=== PATIENT | male | born 1995 | race Caucasian/White ===

== ENCOUNTER 2019-05-30 09:36 | Emergency (ER) | payer OTHER ==
[~2019-05-30] VITALS: Ht 188 cm; Wt 101.0 kg
[2019-05-30] MEDS ORDERED: ADVI100T PO (09:42)
[2019-05-30] MEDS ORDERED: ACETAMINOPHEN 500 MG TAB PO ONE (10:15)
[2019-05-30 10:29] LABS: INFLUENZA A AMPLIFICATION NEGATIVE (NEGATIVE); INFLUENZA B AMPLIFICATION NEGATIVE (NEGATIVE)
[2019-05-30 11:13] LABS: BASO # 0.1 10^3/uL (0.0-0.2); BASO % 0.4 % (0.0-1.0); EOS # 0.3 10^3/uL (0.0-0.5); EOS % 1.6 % (0.0-3.0); HEMATOCRIT 42.8 % (42.0-52.0); HEMOGLOBIN 14.5 g/dl (13.5-17.5); LYMPH # 0.8 10^3/uL (1.5-5.0); LYMPH % 4.7 % (24.0-44.0); MEAN CORPUSCULAR HEMOGLOBIN 30.5 pg (27.0-33.0); MEAN CORPUSCULAR HGB CONC 33.9 g/dl (32.0-36.5); MEAN CORPUSCULAR VOLUME 90.1 fl (80.0-96.0); MONO # 0.7 10^3/uL (0.0-0.8); MONO % 4.1 % (0.0-5.0); NEUTROPHILS # 14.1 10^3/uL (1.5-8.5); NEUTROPHILS % 88.8 % (36.0-66.0); PLATELET COUNT, AUTOMATED 231 10^3/uL (150-450); RED BLOOD COUNT 4.75 10^6/uL (4.30-6.10); WHITE BLOOD COUNT 15.9 10^3/uL (4.0-10.0)
--- NOTE | 2019-05-30 11:14 | REP ---
PA and lateral chest: There are no comparisons. The lung ramirez are clear. The cardiac size is normal. The christina, mediastinum, and skeletal structures are unremarkable. Impression: Negative PA and lateral chest. Electronically Signed by Avi Corrales MD 05/30/2019 11:07 A
[2019-05-30 11:34] LABS: BLOOD UREA NITROGEN 9 MG/DL (7-18); CALCIUM LEVEL 9.4 MG/DL (8.5-10.1); CARBON DIOXIDE LEVEL 25 MEQ/L (21-32); CHLORIDE LEVEL 106 MEQ/L (98-107); CREATININE FOR GFR 0.96 MG/DL (0.70-1.30); GLOMERULAR FILTRATION RATE > 60.0 (>60); GLUCOSE, FASTING 103 MG/DL (70-100); POTASSIUM SERUM 3.8 MEQ/L (3.5-5.1); SODIUM LEVEL 139 MEQ/L (136-145)
[2019-05-30 13:36] LABS: MONO REFLEX EBV COMP NEGATIVE (NEGATIVE)
--- NOTE | 2019-05-30 13:42 | REP ---
CT of the chest without IV contrast: Comparison is the PA and lateral plain film study earlier today. There are no infiltrates or pleural effusions. There are no lung masses or nodules. Lung ramirez are clear. There is no mediastinal or axillary lymph node enlargement. In the absence of IV contrast the study is insensitive for hilar lymph node enlargement. The unenhanced thoracic aorta is unremarkable. The cardiac size is normal. There is no pericardial effusion. The visualized unenhanced upper abdominal contents are unremarkable. Impression: There are no infiltrates, pleural effusions, masses, nodules or adenopathy. Negative CT study of the chest without IV contrast. Electronically Signed by Avi Corrales MD 05/30/2019 01:34 P
[2019-05-30] MEDS ORDERED: IBUPROFEN 800 MG TAB PO ONE (16:15)
[2019-05-30 17:37] VITALS: BP 124/67
[2019-06-01 00:12] LABS: EBV VIRAL CAPSID AG IgG <18.0 U/mL (0.0-17.9); EBV VIRAL CAPSID AG IgM <36.0 U/mL (0.0-35.9)
== END 2019-05-30 19:36 | disposition home or self-care (01) ==
LOC: M ED 09:36
DX: J06.9 Acute upper respiratory infection, unspecified (principal); B34.9 Viral infection, unspecified; D72.829 Elevated white blood cell count, unspecified
CPT/HCPCS: 36415; 71046; 71250; 80048; 81001; 85025; 86308; 86664; 86665; 87040; 87486; 87502; 87581; 87633; 87798; 87880; 99284; U0002

== ENCOUNTER 2019-07-29 10:40 | Inpatient (IN) | payer OTHER ==
[~2019-07-29] VITALS: Ht 188 cm; Wt 105.4 kg
[~2019-07-29 10:40] MED LIST: ADVI100T PO
[2019-07-29 11:39] LABS: HEMATOCRIT 45.3 % (42.0-52.0); HEMOGLOBIN 15.3 g/dl (13.5-17.5); MEAN CORPUSCULAR HEMOGLOBIN 30.2 pg (27.0-33.0); MEAN CORPUSCULAR HGB CONC 33.8 g/dl (32.0-36.5); MEAN CORPUSCULAR VOLUME 89.5 fl (80.0-96.0); PLATELET COUNT, AUTOMATED 273 10^3/uL (150-450); RED BLOOD COUNT 5.06 10^6/uL (4.30-6.10); WHITE BLOOD COUNT 7.2 10^3/uL (4.0-10.0)
[2019-07-29 12:05] LABS: ALBUMIN 4.5 GM/DL (3.2-5.2); ALT/SGPT 38 U/L (12-78); BILIRUBIN,DIRECT 0.1 MG/DL (0.0-0.2); BILIRUBIN,TOTAL 0.5 MG/DL (0.2-1.0); BLOOD UREA NITROGEN 7 MG/DL (7-18); CALCIUM LEVEL 8.9 MG/DL (8.5-10.1); CARBON DIOXIDE LEVEL 25 MEQ/L (21-32); CHLORIDE LEVEL 107 MEQ/L (98-107); CREATININE FOR GFR 0.85 MG/DL (0.70-1.30); GLOMERULAR FILTRATION RATE > 60.0 (>60); GLUCOSE, FASTING 95 MG/DL (70-100); POTASSIUM SERUM 3.9 MEQ/L (3.5-5.1); SALICYLATE LEVEL < 1.7 MG/DL (5.0-30.0); SODIUM LEVEL 138 MEQ/L (136-145); TOTAL PROTEIN 7.5 GM/DL (6.4-8.2)
[2019-07-29 12:06] LABS: ACETAMINOPHEN LEVEL < 2.0 UG/ML (10.0-30.0); ETHYL ALCOHOL (ETHANOL) < 0.003 % (0.000-0.010)
[2019-07-29 12:09] LABS: AMPHETAMINES LEVEL URINE NEGATIVE (NEGATIVE); BARBITURATES URINE NEGATIVE (NEGATIVE); BENZODIAZEPINES URINE NEGATIVE (NEGATIVE); CANNABINOIDS URINE NEGATIVE (NEGATIVE); COCAINE METABOLITE URINE NEGATIVE (NEGATIVE); METHADONE URINE NEGATIVE (NEGATIVE); OPIATES URINE NEGATIVE (NEGATIVE); PHENCYCLIDINE URINE NEGATIVE (NEGATIVE)
[2019-07-29] MEDS ORDERED: traZODone 50 MG TAB PO PRN (14:45)
[2019-07-29] MEDS ORDERED: ACETAMINOPHEN TAB 650MG DOSE (2X325MG) PO PRN (14:45)
[2019-07-29] MEDS ORDERED: MAALOX 30 ML SUSP *UDC PO PRN (14:45)
[2019-07-29] MEDS ORDERED: diphenhydrAMINE 25MG CAP PO PRN (14:45)
[2019-07-29] MEDS ORDERED: MOM 30ML SUSPENSION UDC PO PRN (14:45)
[2019-07-29 16:14] VITALS: BP 110/63
[2019-07-29] MEDS ORDERED: NICOTINE 21MG/24HR 1 EA TRANSDERMAL TD ONE (17:15)
[2019-07-30 06:28] VITALS: BP 112/66
[2019-07-30] MEDS: NICOTINE 21MG/24HR 1 EA TRANSDERMAL TD SCH (08:53)
--- NOTE | 2019-07-30 09:24 | MHHPEPDOC ---
[facility] History & Physical History and Physical DATE OF ADMISSION: July 29, 2019 at 14:34 New Patient Henry Hernandez MRN: N/A Date of : N/A Date of Service: 07/30/2019 Chief Complaint "I got suicidal." History of Present Illness The patient, a 24-year-old man with a history of mild depression presents after increasing loss of interest, concentration problems and reported fatigue. 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 He reports that he came in for help as he had had some difficulties reaching out and had become increasingly bored by interactions with this where she had recommended he seek help immediately. Review Of Systems Depression: As above. Anxiety: Situational. Shabana: The patient denies any episodes of euphoria/dysphoria associated with decreased need for sleep, hedonism, talkatively or impulsivity lasting longer than 5 days. Psychotic: The patient denies any experiences of auditory or visual hallucinations. They deny any episodes of paranoia or delusional thinking in the past Trauma: The patient denies any traumatic events associated with nightmares or intrusive thoughts. Borderline: Not screened. Past Psychiatric History No history of inpatient admissions, suicide attempts or medication trials. Reports a history of depression treated at [facility] episodically. Allergies Please see below. Family Psychiatric History The patient denies/is unaware any history of mental health history including addictions and suicide. Social History The patient grew up outside the local area. 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 Denies any history of trauma or abuse. Substance Abuse History The patient denies any excessive alcohol use, tobacco or illicit drug use, denies history of substance use treatment. Medical History Patient has no significant past medical history. Mental Status Examination General: Well dressed with good hygiene Speech: Spontaneous and fluid Thought processes: Linear and logical MSK: Smooth and coordinated gait, no signs of tremors or involuntary orofacial movements Thought content: Mild hopelessness. Abstract reasoning, and computation: Intact Description of associations: Intact Description of abnormal or psychotic thoughts: Denies any suicidal or homicidal ideation. Denies any auditory or visual hallucinations. Does not appear to be responding to internal stimuli. Does not appear to be endorsing any bizarre or paranoid ideation. Judgment: Fair. Insight: Mildly limited. Orientation: Alert and orientated 3 Cognition: Grossly normal Recent and remote memory: Intact Attention span and concentration: Intact Fund of knowledge: Adequate Mood: "okay" Affect: Mildly flat. Diagnoses Unspecified depressive disorder. Adjustment versus MDD. Assessment and Plan Unspecified depressive disorder: Start Wellbutrin 150 mg daily Extended-Release. The risks, benefits as well as common side effects as well as alternative treatments (including non-treatment) were discussed with the patient both in [facility] and for their particular case. The patient selected this option out of a range. Disposition Patient will be retained on a voluntary for further treatment at his behest. Problem List 1. Risk for suicide. 2. Ineffective coping. Initial Treatment Plan 1. Patient was admitted on a 11.30 legal status. 2. Complete history was obtained. 3. With patients permission, family will be contacted and database will be expanded. 4. Patients medication regimen will be reviewed and changed accordingly. 5. Patient will be provided with protected environment. 6. Patient will be treated with individual, group, and milieu therapies. 7. Patient will receive supportive psych-education. 8. Discharge planning will commence immediately. 9. Outpatient follow-up treatment will be strongly recommended. 10. The initial treatment plan will focus initially on: Estimated Length Of Stay 3 days. Time Spent 70 minutes with greater than 50% of time spent on counseling/coordination of care. Monday Vital Signs Vital Signs Date Time Temp Pulse Resp B/P (MAP) Pulse Ox O2 Delivery O2 Flow Rate FiO2 07/30/19 06:28 98.0 62 12 112/66 (81) Room Air 07/29/19 15:48 99 Laboratory Data 24H Labs Laboratory Tests 2 07/29/19 11:22: Nucleated Red Blood Cells % (auto) 0.0, Anion Gap 6L, Glomerular Filtration Rate > 60.0, Calcium Level 8.9, Total Bilirubin 0.5, Direct Bilirubin 0.1, Aspartate Amino Transf (AST/SGOT) 29, Alanine Aminotransferase (ALT/SGPT) 38, Alkaline Phosphatase 60, Total Protein 7.5, Albumin 4.5, Albumin/Globulin Ratio 1.50, Thyroid Stimulating Hormone (TSH) 2.390, Salicylates Level < 1.7L, Urine Opiates Screen NEGATIVE, Urine Methadone Screen NEGATIVE, Acetaminophen Level < 2.0L, Urine Barbiturates Screen NEGATIVE, Urine Phencyclidine Screen NEGATIVE, Urine Amphetamines Screen NEGATIVE, Urine Benzodiazepines Screen NEGATIVE, Urine Cocaine Metabolite Screen NEGATIVE, Urine Cannabinoids Screen NEGATIVE, Ethyl Alcohol Level < 0.003 CBC/BMP Laboratory Tests 07/29/19 11:22 Medications No Active Prescriptions or Reported Meds Allergies Coded Allergies: No Known Allergies (Verified Allergy, Unknown, 05/30/19) JERRI JIMENEZ DO July 30, 2019 09:24
--- NOTE | 2019-07-30 10:44 | HPEPDOC ---
General Date of Admission July 29, 2019 at 14:34 Date of Service: July 30, 2019 Chief Complaint The patient is a 24-year-old male admitted with a reason for visit of Depressive Disorder. Source: Patient Exam Limitations: Other Timing/Duration: Other (, not applicable) Severity: Other (applicable) Associated Symptoms: Other (not applicable) History of Present Illness 24 years old male from a [facility] was admitted with chief complaints of suicidal ideation since last 2 months. Patient denies any medical symptoms complaint of history Home Medications No Active Prescriptions or Reported Meds Allergies Coded Allergies: No Known Allergies (Verified Allergy, Unknown, 05/30/19) Past Medical History Medical History None Surgical History None Family History Family history reviewed. No history of diabetes, cancer or psych problems Social History * Smoker: Denies Alcohol: Denies Drugs: denies A-FIB/CHADSVASC A-FIB History Current/History of A-Fib/PAF?: No Review of Systems Constitutional: Denies: Chills, Fever, Malaise, Night Sweats, Weakness, Fatigue, Weight Loss, Lethargy, Other Eyes: Denies: Pain, Vision change, Conjunctivae inflammation, Eyelid inflammation, Redness, Other ENT: Denies: Head Aches, Ear Pain, Dysphagia, Sinus Congestion, Post Nasal Drip, Sore Throat, Epistaxis, Other Symptoms Skin: Denies: Rash, Lesions, Jaundice, Bruising, Itching, Dry, Breakdown, Nail Changes, Other Pulmonary: Denies: Dyspnea, Cough, Pleuritic Chest Pain, Other Symptoms Cardiovascular: Denies: Chest Pain, Palpitations, Orthopnea, Paroxysmal Noc. Dyspnea, Edema, Lt Headedness, Other Symptoms Gastrointestinal: Denies: Nausea, Vomiting, Abdominal Pain, Diarrhea, Constipation, Melena, Hematochezia, Other Symptoms Genitourinary: Denies: Dysuria, Frequency, Incontinence, Hematuria, Retention, Other Symptoms Hematologic: Denies: Bruising, Bleeding Excessively, Petecchia, Purpura, Enlarged Lymph Nodes, Other Hematologic Endocrine: Denies: Polydipsia, Polyphagia, Polyuria, Heat Intolerance, Cold Intolerance, Other Endocrine Sx Musculoskeletal: Denies: Neck Pain, Back Pain, Shoulder Pain, Arm Pain, Hand Pain, Leg Pain, Foot Pain, Joint Pain, Muscle Pain, Spasms, Other Symptoms Neurological: Denies: Weakness, Numbness, Change in speech, Confusion Psych: Reports: Mood Normal; Denies: Depression, Memory Issues Physical Examination General Exam: Positive: Alert, Cooperative Eye Exam: Positive: PERRLA, Conjunctiva & lids normal ENT Exam: Positive: Atraumatic Neck Exam: Positive: Supple Chest Exam: Positive: Clear to auscultation, Normal air movement Heart Exam: Positive: Rate Normal, Normal S1, Normal S2 Abdomen Exam: Positive: Normal bowel sounds, Soft Extremity Exam: Positive: Normal pulses Skin Exam: Positive: Nl turgor and temperature Neuro Exam: Positive: Strength at 5/5 X4 ext, Sensation Intact, Cranial Nerves 3-12 NL Psych Exam: Positive: Other (. Suicidal ideations) Vital Signs Vital Signs Date Time Temp Pulse Resp B/P (MAP) Pulse Ox O2 Delivery O2 Flow Rate FiO2 07/30/19 06:28 98.0 62 12 112/66 (81) Room Air 07/29/19 15:48 99 Laboratory Data Labs 24H Laboratory Tests 2 07/29/19 11:22: Nucleated Red Blood Cells % (auto) 0.0, Anion Gap 6L, Glomerular Filtration Rate > 60.0, Calcium Level 8.9, Total Bilirubin 0.5, Direct Bilirubin 0.1, Aspartate Amino Transf (AST/SGOT) 29, Alanine Aminotransferase (ALT/SGPT) 38, Alkaline Phosphatase 60, Total Protein 7.5, Albumin 4.5, Albumin/Globulin Ratio 1.50, Thyroid Stimulating Hormone (TSH) 2.390, Salicylates Level < 1.7L, Urine Opiates Screen NEGATIVE, Urine Methadone Screen NEGATIVE, Acetaminophen Level < 2.0L, Urine Barbiturates Screen NEGATIVE, Urine Phencyclidine Screen NEGATIVE, Urine Amphetamines Screen NEGATIVE, Urine Benzodiazepines Screen NEGATIVE, Urine Cocaine Metabolite Screen NEGATIVE, Urine Cannabinoids Screen NEGATIVE, Ethyl Alcohol Level < 0.003 CBC/BMP Laboratory Tests 07/29/19 11:22 Problems (1) Suicidal ideations Status: Acute Problem Text: Patient admitted to inpatient mental health unit for further care by psych Individual group counseling, as per psychiatry Pharmaceutical intervention as per psych No further medical workup indicated. Please call us back as needed (2) Depressive disorder, not elsewhere classified Status: Chronic Problem Text: As per psychiatry Plan / VTE VTE Prophylaxis Ordered?: No VTE Exclusion Mechanical Proph: Low Risk for VTE VTE Exclusion Pharmacological: At Low Risk for VTE MARY ROJAS MD July 30, 2019 10:44
[2019-07-30] MEDS ORDERED: buPROPion **XL** TABLET 150MG (WELLBUTRIN XL) PO ONE (11:00)
[2019-07-30 16:06] VITALS: BP 122/58
[2019-07-31 06:33] VITALS: BP 102/54
[2019-07-31] MEDS: buPROPion **XL** TABLET 150MG (WELLBUTRIN XL) PO SCH (08:08)
[2019-07-31] MEDS: NICOTINE 21MG/24HR 1 EA TRANSDERMAL TD SCH (08:08)
--- NOTE | 2019-07-31 10:00 | MHIPNPDOC ---
[facility] Progress Note Progress Note Inpatient Progress Note Henry Hernandez MRN: N/A Date of : N/A Date of Service: 07/31/2019 History of Present Illness The patient, a 24-year-old man with a history of mild depression presents after increasing loss of interest, concentration problems and reported fatigue. 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 He reports that he came in for help as he had had some difficulties reaching out and had become increasingly bored by interactions with this where she had recommended he seek help immediately. Interval History The patient's net with today. He reports he is doing much better and is improving well on his Wellbutrin. He reports that he has done well in groups and other treatment. His fatigue, loss of interest and concentration have been resolving while and he feels much improved. He has had no behavioral problems and has been engaging well with treatment. Review Of Systems General: Denies fever or appetite changes Cardiovascular: Denies Chest pain or palpations GI: Denies Nausea, vomiting, or bowel changes Respiratory: Denies shortness of breath or cough Neuro: Denies dizziness, tremors Derm: Denies any rashes or pruritus : Denies any dysuria or urinary problems MSK: Denies any muscle tightness or stiffness HEENT: Denies any vision changes or headaches Psychotherapy None on this visit. Vital Signs Reviewed. Mental Status Examination General: Well dressed with good hygiene Speech: Spontaneous and fluid Thought processes: Linear and logical MSK: Smooth and coordinated gait, no signs of tremors or involuntary orofacial movements Thought content: Future orientated Abstract reasoning, and computation: Intact Description of associations: Intact Description of abnormal or psychotic thoughts: Denies any suicidal or homicidal ideation. Denies any auditory or visual hallucinations. Does not appear to be responding to internal stimuli. Does not appear to be endorsing any bizarre or paranoid ideation. Judgment: fair Insight: fair Orientation: Alert and orientated 3 Cognition: Grossly normal Recent and remote memory: Intact Attention span and concentration: Intact Fund of knowledge: Adequate Mood: "okay" Affect: Euthymic with a full range Diagnoses Unspecified depressive disorder. Adjustment versus MDD. Assessment and Plan Unspecified depressive disorder: Continue Wellbutrin 150 mg daily. Disposition Discharge tomorrow if continues to improve. Time Spent 15 minutes. Monday Vital Signs Vital Signs Date Time Temp Pulse Resp B/P (MAP) Pulse Ox O2 Delivery O2 Flow Rate FiO2 07/31/19 06:33 97.8 80 12 102/54 (70) 07/30/19 06:28 Room Air 07/29/19 15:48 99 Current Medications Current Medications Medications (Trade) Dose Ordered Sig/Walter Route PRN Reason Start Time Stop Time Status Last Admin Dose Admin Acetaminophen (Tylenol Tab) 650 mg Q6HP PRN PO HEADACHE or DISCOMFORT 07/29/19 14:45 Al Hydrox/Mg Hydrox/Simethicone (Mylanta) 30 ml Q4HP PRN PO HEARTBURN/INDIGESTION 07/29/19 14:45 Bupropion HCl (Wellbutrin Xl) 150 mg DAILY PO 07/31/19 09:00 07/31/19 08:08 Diphenhydramine HCl (Benadryl) 25 mg Q6HP PRN PO ANXIETY/AGITATION 07/29/19 14:45 Home Med (Med Rec Complete!) ASDIRECTED XX 07/29/19 14:30 07/29/19 14:19 DC Magnesium Hydroxide (Milk Of Magnesia) 30 ml DAILYPRN PRN PO CONSTIPATION 07/29/19 14:45 Nicotine (Nicoderm Cq 21mg) 1 patch DAILY TD 07/30/19 09:00 07/31/19 08:08 Trazodone HCl (Desyrel) 50 mg QHSP PRN PO INSOMNIA 07/29/19 14:45 Allergies Coded Allergies: No Known Allergies (Verified Allergy, Unknown, 05/30/19) JERRI JIMENEZ DO July 31, 2019 10:00
[2019-07-31] MEDS ORDERED: NICO21PAT TD (11:01)
[2019-07-31] MEDS ORDERED: BUPR150T3 PO (11:01)
[2019-07-31 16:05] VITALS: BP 127/67
[2019-08-01 06:39] VITALS: BP 118/77
[2019-08-01] MEDS: buPROPion **XL** TABLET 150MG (WELLBUTRIN XL) PO SCH (08:05)
[2019-08-01] MEDS: NICOTINE 21MG/24HR 1 EA TRANSDERMAL TD SCH (08:06)
--- NOTE | 2019-08-01 09:56 | MHDSPDOC ---
[facility] Discharge Summary Discharge Summary DATE OF ADMISSION: July 29, 2019 at 14:34 DATE OF DISCHARGE: 08/01/2019 Discharge Henry Hernandez MRN: N/A Date of : N/A Date of Service: 08/01/2019 Diagnoses Unspecified depressive disorder. Adjustment versus MDD. History of Present Illness The patient, a 24-year-old man with a history of mild depression presents after increasing loss of interest, concentration problems and reported fatigue. 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 He reports that he came in for help as he had had some difficulties reaching out and had become increasingly bored by interactions with this where she had recommended he seek help immediately. Consultants Involved Hospitalist/PCP screening Treatment and Progress On The Unit The patient was admitted to the inpatient mental health unit. He did not have any suicidal thoughts when he first arrived reporting primarily that he had hopelessness and depression. He was started on Wellbutrin 150 mg daily and tolerated well with improvement in his symptoms. His depression, low mood and other problems resolved without much effort. He engaged well, had no behavioral problems and generally did not require many PRNs. Discharge Assessment 24-year-old man with a history of depression presents for treatment, he is treated with Wellbutrin with positive results. The patient at the time of discharge did not meet criteria for involuntary admission/extension due to having a normal mental status exam, fair insight into the situation, They are engaged in the discharge process, as well as being friendly and amenable in behavioral control and havent been engaging in any observed concerning behavior or ideation recently. They decline voluntary extension/admission at this time and must be discharged in good dolly, as Im unable to make a case for holding the patient against their will. They may have historical risk factors of admissions and other interactions with psychiatry however, those are not modifiable from a clinical perspective. The patient will need to be discharged in good dolly. Mental Status Examination General: Well dressed with good hygiene Speech: Spontaneous and fluid Thought processes: Linear and logical MSK: Smooth and coordinated gait, no signs of tremors or involuntary orofacial movements Thought content: Future orientated Abstract reasoning, and computation: Intact Description of associations: Intact Description of abnormal or psychotic thoughts: Denies any suicidal or homicidal ideation. Denies any auditory or visual hallucinations. Does not appear to be responding to internal stimuli. Does not appear to be endorsing any bizarre or paranoid ideation. Judgment: fair Insight: fair Orientation: Alert and orientated 3 Cognition: Grossly normal Recent and remote memory: Intact Attention span and concentration: Intact Fund of knowledge: Adequate Mood: "okay" Affect: Euthymic with a full range Follow Up The social work team worked during the predischarge meeting in order to evaluate for further issues of lethality address them fully before discharge. They worked on safety planning with the patient's family members in order to ensure that the patient will have a safe and effective discharge. Time Spent The amount of time spent in the coordination of care for this patient was approximately 45 minutes. Vital Signs/I&Os Vital Signs Date Time Temp Pulse Resp B/P (MAP) Pulse Ox O2 Delivery O2 Flow Rate FiO2 08/01/19 06:39 97.5 68 12 118/77 (91) 07/30/19 06:28 Room Air 07/29/19 15:48 99 Medications Scheduled Bupropion Hcl (Bupropion Xl) 150 Mg Tab.er.24h, 150 MG PO DAILY for mood for 7 Days, #7 Nicotine (Nicotine Patch) 21 Mg Patch.td24, 1 PATCH TD DAILY for tobacco for 30 Days, #30 Allergies Coded Allergies: No Known Allergies (Verified Allergy, Unknown, 05/30/19) JERRI JIMENEZ DO August 01, 2019 09:56
== END 2019-08-01 10:10 | disposition home or self-care (01) | DRG 881 ==
LOC: M ED 10:40 → M ED INP 14:34 → M PSY 16:05
PROVIDERS: ADMIT Psychiatry & Neurology Addiction Medicine; ATTEND Psychiatry & Neurology Addiction Medicine
DX: F32.9 Major depressive disorder, single episode, unspecified (principal); R45.851 Suicidal ideations; F43.21 Adjustment disorder with depressed mood

== ENCOUNTER 2019-11-05 23:19 | Emergency (ER) | payer OTHER ==
[~2019-11-05] VITALS: Ht 188 cm; Wt 95.5 kg
[2019-11-05 23:19] VITALS: BP 131/76
[~2019-11-05 23:19] MED LIST changes: +BUPR150T3 PO; +NICO21PAT TD
[2019-11-06] MEDS ORDERED: KETOROLAC 30 MG/ML 1ML VIAL IV ONE (01:45)
[2019-11-06 01:59] LABS: BASO # 0.1 10^3/uL (0.0-0.2); BASO % 1.2 % (0.0-1.0); EOS # 0.3 10^3/uL (0.0-0.5); EOS % 3.3 % (0.0-3.0); HEMATOCRIT 39.7 % (42.0-52.0); HEMOGLOBIN 13.2 g/dl (13.5-17.5); LYMPH % 25.8 % (24.0-44.0); MEAN CORPUSCULAR HEMOGLOBIN 30.2 pg (27.0-33.0); MEAN CORPUSCULAR HGB CONC 33.2 g/dl (32.0-36.5); MEAN CORPUSCULAR VOLUME 90.8 fl (80.0-96.0); MONO # 0.5 10^3/uL (0.0-0.8); MONO % 6.9 % (0.0-5.0); NEUTROPHILS # 4.8 10^3/uL (1.5-8.5); NEUTROPHILS % 62.5 % (36.0-66.0); PLATELET COUNT, AUTOMATED 237 10^3/uL (150-450); RED BLOOD COUNT 4.37 10^6/uL (4.30-6.10); WHITE BLOOD COUNT 7.6 10^3/uL (4.0-10.0)
--- NOTE | 2019-11-06 11:29 | REPVR ---
PROCEDURE INFORMATION: Exam: XR Chest, 2 Views Exam date and time: 11/06/2019 1:43 AM Age: 24 years old Clinical indication: Chest pain TECHNIQUE: Imaging protocol: XR of the chest Views: 2 views. COMPARISON: CT Chest without contrast 05/30/2019 1:13 PM FINDINGS: Lungs: No acute airspace disease. Pleural space: No pleural effusion. Heart/Mediastinum: Normal configuration of the heart. Prominent epicardial fat. Bones/joints: Unremarkable. IMPRESSION: No acute airspace or pleural disease. Electronically signed by: Fidel Martinez On 11/06/2019 11:29:44 AM
--- NOTE | 2019-12-01 13:15 | ECGEPIP ---
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
== END 2019-11-06 03:22 | disposition home or self-care (01) ==
LOC: M ED 23:19
DX: R07.89 Other chest pain (principal); F32.9 Major depressive disorder, single episode, unspecified
CPT/HCPCS: 71046; 80047; 84484; 85025; 93005; 93041; 94760; 99284; J1885